=== PATIENT | male | born 1980 | race Caucasian/White ===

== ENCOUNTER 2017-08-18 12:15 | Observation (INO) | payer OTHER ==
[2017-08-12 11:54] VITALS: BMI 32.0
[2017-08-18] VITALS (11 sets, daily range): BP systolic 123–146; BP diastolic 79–96; PULSE 79–123; TEMP 36.6–37.2; O2SAT 94–99; Ht 182.9 cm; Wt 104.9 kg
[~2017-08-18] VITALS: Ht 182.9 cm; Wt 104.9 kg
--- NOTE | 2017-08-18 11:22 | History & Physical Bridge Note ---
H&P Re-Evaluation Bridge Note: I have examined the patient, reviewed the History & Physical and in the interval since the performance of the History & Physical I have noted the following changes of clinical significance: No changes noted
--- NOTE | 2017-08-18 11:22 | Pre Sedation Assessment ---
Pre Sedation Assessment General Date of Sedation: Aug 18, 2017. Review Cardiovascular: regular rate, rhythm, no murmur Lungs: lungs clear, normal breath sounds Pre-Sedation Airway Assessment Smoking Status: Never Smoker Hx of Sleep Apnea: No Hx of difficult intubation: No Short Thick Neck: No Thyro-mental Distance: < or =3 Finger Breadths Oral Cavity: WNL Mallampati Classification: Class II ASA Classification: Class II Procedure Planning Contraindications for Sedation: None Current Medications Reviewed: Yes Notes The planned sedation has been discussed with the patient. Informed Consent was obtained. I have identified the patient, determined the appropriateness of sedation and have assessed the patient immediately prior to the procedure. All medicine(s) and interventions are by my order.
[~2017-08-18 12:15] MED LIST: METO25TA56 PO; MULT-506 PO; OMEG10007 PO
[2017-08-18] MEDS ORDERED: MIDAZOLAM HCL 5 MG/ML 1 ML VIAL ONE ×4 (12:53→14:32)
[2017-08-18] MEDS ORDERED: FENTANYL CITRATE INJ 50 MCG/1 ML 2 ML VIAL ONE ×5 (12:54→14:32)
[2017-08-18] MEDS ORDERED: ISOPROTERENOL 200 MCG / 50ML D5W IV ONE (13:42)
--- NOTE | 2017-08-18 15:55 | Post Sedation Assessment ---
Post Sedation Assessment General Date of Sedation Aug 18, 2017. Vital Signs: Vital Signs Past 12 Hours Date Time Temp Pulse Resp B/P (MAP) Pulse Ox O2 Delivery O2 Flow Rate FiO2 08/18/17 15:45 110 16 176/107 (130) 100 Mask 3 08/18/17 12:33 37 79 16 146/89 (108) 99 Room Air Post Procedure Recovery Score Activity: (2) Moves 4 extremities * Respiration: (2) Deep breath/cough Circulation: (2) +/-20% PreAnes Value Consciousness: (2) Fully Awake Oxygen Saturation: (2) > 92% On Room Air Post Anesthesia Score: 10 Discharge Sedation Level of Care: Fast Track Phase II Post Sedation Plan On clinical assessment, the patient appears to have tolerated the sedation without complications. Patient is recovering as anticipated. Patient will continue to be monitored by nursing and may be discharged when sedation discharge criteria are met per below protocol. Upon Completions of procedure and additional 15 minutes continue every 5 minute vital signs and the P.A.R. score; then discharge to a Phase I or Fast Track to Phase II per the following guidelines: * Discharge Patient to appropriate Phase II area if PAR is 8 or greater or return to pre- procedure baseline. The post - procedure orders will be as directed. * If PAR score is less than 8 or not return to pre-procedure baseline then patient will follow Phase I monitoring till PAR is reached for Phase II. The Phase I may be done in procedure room or may call to secure a Phase I area. * If naloxone or flumazenil are used for reversal, hold in Phase I for an additional 60 -120 minutes before discharge to Phase II. Please call the Sedation Physician to re-evaluate and complete post-note for discharge to Phase II area. Do NOT discharge from procedure sedation or Phase 1 until post- sedation evaluation note is complete by procedure /sedation MD Sedation Discharge Instructions to be given to the patient at discharge to home.
--- NOTE | 2017-08-18 15:56 | [facility] Post Operative Brief Note ---
Immediate Operative Summary Operative Date Aug 18, 2017. Pre-Operative Diagnosis SVT Post-Operative Diagnosis AVNRT Procedure(s) Performed EPS, 3d Mapping of HIs bundle and C/S Os, slow pathway modification Surgeon david andre [place] Slitter Surgeon(s) none Estimated Blood Loss <5cc Findings see official report Fluids (cc crystalloids) 300cc Specimens none Drains none Anesthesia 20mg versed and 500mcg fentanyl Complication(s) None Disposition PCU
--- NOTE | 2017-08-18 15:58 | Discharge Instructions ---
Discharge Instructions Date of Service Aug 18, 2017. Admission Reason for Admission: Svt * Discharge Discharge Diagnosis / Problem: avnrt Discharge Goals Goal(s): Improve function Activity Recommendations Activity Limitations: as noted below Lifting Limitations: no more than 10 pounds (no heavy lifting or squating for 1 week) Shower/Bathe: tomorrow Driving or Machine Use: resume 1 day after discharge . Instructions / Follow-Up Instructions / Follow-Up ACTIVITY RECOMMENDATIONS: It is common to feel weak and fatigue for a few days. * Do not drive or operate any motorized equipment for the next 1 day. * Limit stair usage (2 or 3 trips a day only) for the next three days. * Do not lift anything heavier than 10 pounds for the next 7 days. * Do not engage in vigorous exercise or any sports for the next five days. * You may shower the day after your procedure, but do not immerse the area for three days. Cleanse the site gently with soap and water. SPECIAL CARE INSTRUCTIONS: * You may replace the pressure dressing or band-aid the morning after the procedure. * After your procedure, it is normal to have a small bruise or small lump at the site. Examine your site daily for any change in the bruise or lump, redness, swelling, drainage or numbness. Notify your doctor if any change. BLEEDING: * If there is a small amount of bleeding at the site, lie down and apply firm pressure with a clean cloth for ten minutes. When the bleeding stops, lie quietly keeping the procedure limb straight for six hours. Notify your doctor as soon as possible. * If the bleeding does not stop after ten minutes or if there is a large amount of bleeding or spurting, call 911 immediately. Continue to lie down and hold firm pressure until help arrives. SKIN IRRITATION: * You may experience some redness and/or swelling in the area where radiation was administered. If any skin irritation occurs, please contact your family physician. FOLLOW UP VISIT: Keep any scheduled doctor appointments. Current Hospital Diet Patient's current hospital diet: Discharge Diet Recommended Diet: Regular Diet Procedures Procedures Performed: EPS, 3d Mapping of HIs bundle and C/S Os, slow pathway modification Pending Studies Studies pending at discharge: no Medical Emergencies . Who to Call and When: Medical Emergencies: If at any time you feel your situation is an emergency, please call 911 immediately. . Non-Emergent Contact Non-Emergency issues call your: Spa Manager/Esthetician . . "Provider Documentation" section prepared by Chelsea Fitch. .
--- NOTE | 2017-08-18 16:01 | Discharge Summary ---
Discharge Summary Date of Service Aug 18, 2017. Discharge Summary Admission Date: 08/18/2017 Discharge Date: Aug 19, 2017 Discharge Disposition: Home Principal Diagnosis: avnrt Procedures: eps, 3d mapping of his bundle and coronary sinus os, slow pathway modification Medication Reconciliation Continued Medications: Fish Oil (Nada-3) 1 Ea Cap 1 CAP PO QAM, CAP Multivitamin (Multivitamin) Tab 1 TAB PO QAM, TAB Discontinued Medications: Metoprolol Tartrate (Lopressor) (Lopressor) 25 Mg Tab 25 MG PO BID, TAB WILL FOLLOW SURGEON INSTRUCTIONS Admission Information Physical Exam (per Admitting): aaox3, NAD NC/AT, EOMI Supple, No JVD Nrl S1/S2, no murmur CTA b/l no w/r/r soft nt/nd no edema b/l LE no focal deficits skin intact Hospital Course Pt admitted for elective EPS with possible ablation due to Zio patch showing SVT at rate of 200bpm. 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 Monitored overnight and discharged home next day without any beta fabi. Total time spent on discharge = 30 minutes This includes examination of the patient, discharge planning, medication reconciliation, and communication with other providers. Discharge Instructions ACTIVITY RECOMMENDATIONS: It is common to feel weak and fatigue for a few days. * Do not drive or operate any motorized equipment for the next 1 day. * Limit stair usage (2 or 3 trips a day only) for the next three days. * Do not lift anything heavier than 10 pounds for the next 7 days. * Do not engage in vigorous exercise or any sports for the next five days. * You may shower the day after your procedure, but do not immerse the area for three days. Cleanse the site gently with soap and water. SPECIAL CARE INSTRUCTIONS: * You may replace the pressure dressing or band-aid the morning after the procedure. * After your procedure, it is normal to have a small bruise or small lump at the site. Examine your site daily for any change in the bruise or lump, redness, swelling, drainage or numbness. Notify your doctor if any change. BLEEDING: * If there is a small amount of bleeding at the site, lie down and apply firm pressure with a clean cloth for ten minutes. When the bleeding stops, lie quietly keeping the procedure limb straight for six hours. Notify your doctor as soon as possible. * If the bleeding does not stop after ten minutes or if there is a large amount of bleeding or spurting, call 911 immediately. Continue to lie down and hold firm pressure until help arrives. SKIN IRRITATION: * You may experience some redness and/or swelling in the area where radiation was administered. If any skin irritation occurs, please contact your family physician. FOLLOW UP VISIT: Keep any scheduled doctor appointments.
[2017-08-18] MEDS ORDERED: ACETAMINOPHEN 325 MG TAB PO PRN (16:15)
--- NOTE | 2017-08-18 17:24 | OPERATIVE REPORT ---
DATE OF OPERATION: 08/18/2017 PREOPERATIVE DIAGNOSES: Supraventricular tachycardia on pin inserter of 200 beats a minute and palpitations. POSTOPERATIVE DIAGNOSIS: Typical atrioventricular russ reentrant tachycardia. PROCEDURE: Electrophysiology study, isuprel drug challenge infusion, a 3D mapping of the His bundle and coronary sinus os, slow pathway modification. SURGEON: Dr. Chelsea Fitch. TURRET LATHE TENDER: None. ANESTHESIA: Moderate conscious sedation administered under my supervision by Nabeel Espinoza. Start time - 1301 and end time 1545, a total of 20 mg of Versed and 500 mcg of fentanyl. INTRAVENOUS FLUIDS: 300 mL. ESTIMATED BLOOD LOSS: Less than 5 mL. COMPLICATIONS: None. CONDITION: Stable. URINE OUTPUT: Not applicable. SPECIMENS: None. FINDINGS: None. DRAINS: None. INDICATIONS: This 36-year-old gentleman who has a past medical history of palpitations. He wore a CardioNet monitor 2-week monitor and he was found to have an SVT at a rate of 200 beats a minute for as long as 35 seconds. Due to this, it was recommended electrophysiology study with possible ablation. CONSENT: Consent was obtained prior to the patient going into the electrophysiology lab. The patient was informed of the risks, benefits, alternatives to the procedure. Risks include but not limited to sudden cardiac , cardiac arrhythmias, cerebrovascular accident, myocardial infarction, injury to the blood vessels, chamber of the heart or the [place] electrical system were irrigated permanent pacemaker, bleeding and infection. The patient understood these risks and agreed to the procedure as planned. Informed consent was obtained. DESCRIPTION OF THE PROCEDURE: The patient was brought into the electrophysiology lab in a fasting state. He was connected to continuous cardiac monitoring. A timeout was performed to ensure patient's identity and procedure correctly. The patient received monitored conscious sedation throughout the procedure for his comfort level via my supervision. [place] precautions were maintained throughout the procedure; he was prepped and draped over the bilateral groins in normal surgical standard fashion. A 10 mL of 1% lidocaine were given in the bilateral groins for local anesthesia. Then using a modified Seldinger technique, venous access was obtained in the following manner. 1. Left femoral vein, 7-[place] sheath followed by a Causataense SmartKem curve Decapolar catheter positioned out coronary sinus. 2. A 7-[place] sheath followed by a quadripolar catheter positioned over the His bundle. A 6-[place] sheath followed by Vic quadripolar catheter positioned in the right ventricular apex. 3. The right femoral vein had a 6-[place] sheath followed by a Vic Decapolar catheter positioned in the high right atrium. 4. Eventually an SRO0 sheath followed by a RepairPal Biosense 4 mm ablation catheter. Electrophysiology study was performed once all the catheters were positioned with the following findings: 1. Baseline findings: ND interval 150 milliseconds, QRS 90 milliseconds, QT 366 milliseconds, sinus cycle length of 500 milliseconds, AH 64 milliseconds, HV 44 milliseconds, AV Wenckebach was 300 milliseconds, fast pathway ERP was 600/310. AV node ERP was 600/250 and 400/260. The atrial ERP was less than or equal to 600/204 less than or equal to 400/200. The right ventricular ERP was 600/220 and 400/200. There was VA conduction at 600 cycle length. 2. I gave up to triples without any isuprel and I do not induce any SVT. With the atrial burst pacing, I did induce a brief time some atrial fibrillation but the ventricular rate was relatively controlled and converted back to sinus rhythm on his own. We then started isuprel infusion. I did not get much response to 2, so ended up going up to 3 and then an electrophysiology study was performed on the isuprel with following findings: 1. The ND interval 124 milliseconds, QRS 72 milliseconds, QT 270 milliseconds, sinus cycle length of 400 milliseconds, AH was 50 milliseconds, HV 58 milliseconds, AV Wenckebach was 220 milliseconds, AV node ERP was less than or equal to 350/200 and the atrial ERP was less than or equal to the AV node, and the right ventricular ERP was less than or equal to 400/200. 2. With atrial extrastimuli on double at 400-3200, I did induce an SVT with a tachycardia cycle length of 240 milliseconds, retrograde atrial conduction was concentric and the VA timing was 58 milliseconds. It started with an AH jump during the drive train. 3. With ventricular overdrive pacing at 200 milliseconds, I did ultimately terminated the SVT. We then stopped isuprel and set up to do a slow pathway modification. 4. SR venous access was obtained again in the right femoral vein with an SRO sheath going in and then the ablation catheter. We did a 3D mapping of the His bundle region and created a nice His cloud in addition to noting 3D mapping where the coronary sinus os was. I then positioned the ablation catheter on the low right atrial septum and gave a series of radiofrequency ablations, initially at 20 dash and I did go up to 25 and ultimately 30. I did have a few junctional beats during the ablation and I had adequate temperatures. It was along the ridge, so I kind of worked on both sides of this ridge. After I felt pretty confident that we gave a good amount of radiofrequency ablations, we then did a post-ablation on electrophysiology studies with the following findings: ND interval 150 milliseconds, QRS 86 milliseconds, QT 320 milliseconds. Sinus cycle length 508 milliseconds, AH 92 milliseconds, HV 46 milliseconds, AV Wenckebach 350 milliseconds, the AV node ERP was 400/330 and atrial was 400/200 and the right ventricular ERP was 400/200. I did not induce any SVT up to triples and then I started isuprel back at 3 and went up to triples on the isuprel and did not induce any SVT. We also monitored during a washout. I was never able to reinduce the AVNRT, so deemed the procedure successful. We then removed all the catheters from the heart and then the sheaths were manually pulled and using manual compression hemostasis was obtained. IMPRESSION: 1. 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 2. Dual atrioventricular russ pathology. PLAN: Monitor patient overnight. He can stop his metoprolol. I will see him in the office in 1 month. He is not to do any heavy lifting or squatting for 1 week. I attest to the content of the Intraoperative Record and any orders documented therein. Any exception s are noted below.
[2017-08-18] MEDS ORDERED: IV FLUIDS COMPLETED PRN (19:45)
[2017-08-19 03:44] VITALS: BP 149/71; PULSE 83; TEMP 37.1; O2SAT 96
[2017-08-19 07:41] VITALS: BP 127/84; PULSE 84; TEMP 37; O2SAT 96
[2017-08-19 08:00] VITALS: O2SAT 96
[2017-08-19] MEDS ORDERED: MULTIVITAMIN TAB PO SCH (09:00)
--- NOTE | 2017-08-19 09:43 | Cardiology Follow-Up ---
Subjective General Date of Service: Aug 19, 2017. Chief Complaint: s/p blation Pt evaluation today including: conversation w/ patient, physical exam, chart review, lab review, review of studies, review of inpatient medication list History of Present Illness Patient seen and examined. Chart, medications, and telemetry reviewed. Status post 08/18/2017 EP study, AVNRT ablation Mild right groin oozing and tenderness overnight, resolved. No need for pain medication No chest pain or shortness of breath. Off metoprolol. 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 Allergies Coded Allergies: Penicillins (Unverified Allergy, Unknown, HIVES, 08/18/17) Social History Smoking Status: Never Smoker Hx Tobacco Use In Past Year?: No Hx Alcohol Use - Type And Amou: Yes (davies light) Hx Substance Use - Type And Am: No Review of Systems Respiratory: No cough, No sputum, No wheezing, No shortness of breath, No dyspnea on exertion, No dyspnea at rest, No hemoptysis Cardiac: No chest pain, No orthopnea, No PND, No edema, No claudication, No palpitations Physical Exam Vital Signs Last Vital Signs Documentation Date Time Temp Pulse Resp B/P (MAP) Pulse Ox O2 Delivery O2 Flow Rate FiO2 08/19/17 07:41 37.0 84 18 127/84 (98) 96 Room Air 08/18/17 15:45 3 Physical Exam Constitutional: General Apperance: heathly-appearing Level of Distress: NAD Psychiatric: Mental Status: active & alert Orientation: to time, to place, to person Memory: recent memory normal, remote memory normal Head: normocephalic, atraumatic Eyes: Pupils: PERRLA Neck: pertinent finding (Normal JVP) Lungs: Respiratory effort: no dyspnea Auscultation: breath sounds normal, no wheezing, no rales/crackles, no rhonchi Cardiovascular: Heart Auscultation: no murmurs, no rubs, irregular rate rhythm (Regular rate (90 bpm) with occasional ectopy in singles) Peripheral Pulses: Bruits: none appreciated Radial Pulse: normal on the left, normal on the right Femoral Pulse: normal on the left, normal on the right Dorsalis Pedis Pulse: normal on the left, normal on the right Abdomen: Bowel Sounds: normal Inspection & Palpation: soft, non-distended, no masses Extremities: no cyanosis, no edema, no clubbing Neurologic: Cranial Nerves: grossly intact Assessment and Plan Assessment and Plan Status post 08/18/2017 EP study, AVNRT ablation by Dr. Fitch. Off metoprolol as per Dr. Fitch. Restrictions reviewed. Follow-up as planned. Discharge. Cardiology attending physician: Patient seen and examined at the bedside. Reports some mild oozing from his left calf site overnight. This has resolved. Dressing is clean dry and intact. There is no ecchymosis or hematoma. His vital signs are stable. There are occasional PVCs on telemetry. No recurrent sustained dysrhythmias. Patient denies palpitations. Heart is regular without murmur rub or gallop. The lungs are clear without rales, rhonchi, or wheeze. Abdomen soft and nontender without rebound or guarding. Extremities demonstrate bilateral cath sites which are clean, dry, intact. No edema. A/P: Agree with above PA-C history, physical exam, assessment and plan. Discharge today. Eric Mane DO, FACC
[2017-08-19 10:46] VITALS: BP 127/84; PULSE 84; TEMP 37; O2SAT 96
== END 2017-08-19 10:57 | disposition home or self-care (01) ==
LOC: C.ACU 12:15 → EDBEDREQ 14:35 → ENRESERV 15:43 → C.2T 16:44
PROVIDERS: ADMIT Internal Medicine; ATTEND Internal Medicine
DX: I47.1 Supraventricular tachycardia (principal); R00.2 Palpitations; J45.30 Mild persistent asthma, uncomplicated; K21.9 Gastro-esophageal reflux disease without esophagitis; E66.9 Obesity, unspecified; Z88.0 Allergy status to penicillin; Z83.3 Family history of diabetes mellitus; Z82.49 Family history of ischemic heart disease and other diseases of the circulatory system; Z82.3 Family history of stroke; Z82.5 Family history of asthma and other chronic lower respiratory diseases